=== PATIENT | female | born 2000 | race Caucasian/White ===

== ENCOUNTER 2021-11-28 22:02 | Inpatient (IN) ==
[2021-11-28] MEDS ORDERED: miSOPROStoL 200 MCG TABLET RECTAL PRN (22:24)
[2021-11-28] MEDS ORDERED: ONDANSETRON 4 MG/2 ML VIAL IV PRN (22:24)
[2021-11-28] MEDS ORDERED: CARBOPROST TROMETHAMINE 250 MCG/ML AMP IM PRN (22:24)
[2021-11-28] MEDS ORDERED: MEPERIDINE 50 MG/1 ML VIAL IV PRN (22:24)
[2021-11-28] MEDS ORDERED: METHYLERGONOVINE 0.2 MG/1 ML AMP IM PRN (22:24)
[2021-11-28] MEDS ORDERED: OXYTOCIN/LR 20 UNIT/1,000 ML BAG IV ONE (22:24)
[2021-11-28] MEDS ORDERED: TRANEXAMIC ACID 1,000 MG in SODIUM CHLORIDE 0.9% 100 ML IV PRN (22:24)
[2021-11-28] MEDS ORDERED: BUTORPHANOL 2 MG/ML VIAL IV PRN (22:24)
[2021-11-28 22:55] LABS: Basophils % 0.3 % (0.0-0.8); Eosinophils # 0.2 10*3/uL (0.0-0.87); Eosinophils % 1.6 % (0.00-10.9); Hematocrit 41.2 VOL% (35.7-47.0); Hemoglobin 13.6 GM/DL (12.0-16.0); Immature Granulocytes % 1.1 %; Immature Granulocytes Absolute 0.11 #; Lymphocytes # 1.8 10*3/uL (1.4-4.0); Lymphocytes % 18.6 % (21.3-54.2); Mean Platelet Volume 10.2 FL (9.6-12.0); Monocytes # 0.6 10*3/uL (0.11-0.8); Neutrophils % 72.4 % (38.7-73.9); Platelet Count 245 T/CUMM (130-400); Red Blood Count 4.68 MC/CUMM (3.8-5.5); Red Cell Distribution Width 14.7 % (9.3-17.3); White Blood Count 9.7 T/CUMM (4-12)
[2021-11-29] MEDS ORDERED: OXYTOCIN/LR 20 UNIT/1,000 ML BAG IV SCH (05:00)
[2021-11-29] MEDS: LACTATED RINGERS 1,000 ML IV SCH ×3 (05:12→12:12)
[2021-11-29] MEDS ORDERED: ONDANSETRON 4 MG/2 ML VIAL IV ONE (09:18)
[2021-11-29] MEDS ORDERED: diphenhydrAMINE 50 MG/1 ML VIAL IV PRN ×2 (09:18)
[2021-11-29] MEDS ORDERED: hydrOXYzine HCL 25 MG/1 ML VIAL IM PRN (09:18)
[2021-11-29] MEDS ORDERED: PROMETHAZINE 25 MG/1 ML VIAL IM ONE (09:18)
[2021-11-29] MEDS ORDERED: FAMOTIDINE 20 MG/2 ML VIAL IV ONE (09:18)
[2021-11-29] MEDS ORDERED: CITRIC ACID/SODIUM CITRATE 30 ML UDCUP PO ONE (09:18)
[2021-11-29] MEDS ORDERED: ePHEDrine 50 MG/ML VIAL IV PRN (09:18)
[2021-11-29] MEDS ORDERED: NALOXONE 0.4 MG/ML VIAL IV PRN (09:18)
[2021-11-29] MEDS: fentaNYL 2 MCG/ROPIV 0.2% EPID 100 ML EPIDURAL SCH ×2 (10:36→20:37)
[2021-11-29 12:23] LABS: Bilirubin,Urine Negative (Negative); Blood, Urine Negative (Negative); Glucose,Urine (UA) Negative (Negative); Ketones,Urine Negative (Negative); Nitrite,Urine Negative (Negative); Protein,Urine Negative (Negative); RBC,Urine 1 /HPF (0-4); Squamous Epithelial Cell,Urine Few /HPF (0-10); Urine Appearance Clear (Clear); Urine Color Yellow (Yellow); Urine Specific Gravity 1.015 (1.001-1.035); Urine Urobilinogen 0.2 eU/dL (<2.0)
[2021-11-29 12:24] LABS: Transitional Epi Cells,Urine Few /HPF (<1)
[2021-11-30] MEDS ORDERED: OXYTOCIN/LR 20 UNIT/1,000 ML BAG IV SCH (01:00)
[2021-11-30] MEDS: fentaNYL 2 MCG/ROPIV 0.2% EPID 100 ML EPIDURAL SCH (05:00)
[2021-11-30] MEDS: LACTATED RINGERS 1,000 ML IV SCH (06:10)
[2021-11-30] MEDS ORDERED: CARBOPROST TROMETHAMINE 250 MCG/ML AMP IM PRN (06:16)
[2021-11-30] MEDS ORDERED: METHYLERGONOVINE 0.2 MG/1 ML AMP IM PRN (06:16)
[2021-11-30] MEDS ORDERED: OXYTOCIN/LR 20 UNIT/1,000 ML BAG IV ONE ×2 (06:16→17:00)
[2021-11-30] MEDS ORDERED: miSOPROStoL 200 MCG TABLET RECTAL PRN (06:16)
[2021-11-30] MEDS ORDERED: TRANEXAMIC ACID 1,000 MG in SODIUM CHLORIDE 0.9% 100 ML IV PRN (06:16)
[2021-11-30 07:28] LABS: Basophils # 0.1 10*3/uL (0.0-0.2); Basophils % 0.4 % (0.0-0.8); Eosinophils # 0.1 10*3/uL (0.0-0.87); Eosinophils % 0.4 % (0.00-10.9); Hematocrit 38.7 VOL% (35.7-47.0); Hemoglobin 12.8 GM/DL (12.0-16.0); Immature Granulocytes % 0.6 %; Immature Granulocytes Absolute 0.08 #; Lymphocytes # 1.3 10*3/uL (1.4-4.0); Lymphocytes % 9.9 % (21.3-54.2); Mean Corpuscular HGB Conc 33.1 GM/DL (32-36); Mean Corpuscular Volume 88.8 FL (87-102); Mean Platelet Volume 10.4 FL (9.6-12.0); Monocytes # 0.8 10*3/uL (0.11-0.8); Monocytes % 5.8 % (1.7-12.7); Neutrophils % 82.9 % (38.7-73.9); Platelet Count 205 T/CUMM (130-400); Red Blood Count 4.36 MC/CUMM (3.8-5.5); Red Cell Distribution Width 15.1 % (9.3-17.3); White Blood Count 13.6 T/CUMM (4-12)
[2021-11-30] MEDS ORDERED: ceFAZolin 2,000 MG/50 ML DUPLEX IV ONE (08:00)
[2021-11-30] MEDS ORDERED: FAMOTIDINE 20 MG/2 ML VIAL IV ONE (08:00)
[2021-11-30] MEDS ORDERED: CITRIC ACID/SODIUM CITRATE 30 ML UDCUP PO ONE (08:00)
[2021-11-30] MEDS ORDERED: TRANEXAMIC ACID 1,000 MG/10 ML VIAL ONE (08:05)
[2021-11-30] MEDS ORDERED: miSOPROStoL 200 MCG TABLET ONE (08:05)
[2021-11-30] MEDS ORDERED: SODIUM CHLORIDE 0.9% 0 ML IV ONE (08:06)
[2021-11-30] MEDS ORDERED: METHYLERGONOVINE 0.2 MG/1 ML AMP ONE (08:06)
[2021-11-30] MEDS ORDERED: CARBOPROST TROMETHAMINE 250 MCG/ML AMP IM ONE (08:06)
[2021-11-30] MEDS ORDERED: OXYTOCIN/LR 0 UNIT/0 ML BAG IV ONE (08:06)
[2021-11-30] MEDS ORDERED: OXYTOCIN/LR 30 UNIT/1,000 ML BAG IV ONE (08:13)
[2021-11-30] MEDS ORDERED: OXYTOCIN 10 UNIT/ML VIAL IM ONE (08:13)
[2021-11-30] MEDS ORDERED: LIDOCAINE MPF 2% /EPI 20 ML VIAL ONE (08:47)
[2021-11-30] MEDS ORDERED: buprenorphine HCL 0.3 MG/ML VIAL ONE (09:17)
[2021-11-30] MEDS ORDERED: ONDANSETRON 4 MG/2 ML VIAL ONE (09:18)
[2021-11-30] MEDS ORDERED: DEXAMETHASONE 4 MG/1 ML VIAL ONE (09:18)
[2021-11-30] MEDS ORDERED: KETOROLAC 30 MG/1 ML VIAL ONE (09:21)
[2021-11-30] MEDS ORDERED: ACETAMINOPHEN INJ 1,000 MG/100 ML VIAL IV ONE (09:21)
[2021-11-30 09:28] LABS: Cord Arterial Blood HCO3 21.7 MMOL/L
[2021-11-30 09:31] LABS: Cord Venous Blood HCO3 22.5 MMOL/L; Cord Venous Blood PCO2 49.4 MMHG; Cord Venous Blood PO2 21.8
[2021-11-30] MEDS ORDERED: SIMETHICONE CHEW 80 MG TABLET PO PRN (13:40)
[2021-11-30] MEDS ORDERED: NEOMYCIN/POLYMYXIN/BACITRACIN OINT 0.9 GM PACK TOP SCH (15:00)
[2021-11-30] MEDS: ACETAMINOPHEN 500 MG TABLET PO SCH ×2 (15:27→21:54)
[2021-11-30] MEDS: METOCLOPRAMIDE 10 MG TABLET PO SCH ×2 (15:30→21:54)
[2021-11-30] MEDS: KETOROLAC 30 MG/1 ML VIAL IV SCH ×2 (15:45→21:54)
[2021-11-30 18:09] LABS: Basophils # 0.1 10*3/uL (0.0-0.2); Basophils % 0.3 % (0.0-0.8); Hematocrit 35.3 VOL% (35.7-47.0); Hemoglobin 11.8 GM/DL (12.0-16.0); Immature Granulocytes % 0.6 %; Immature Granulocytes Absolute 0.12 #; Lymphocytes # 1.1 10*3/uL (1.4-4.0); Lymphocytes % 5.8 % (21.3-54.2); Mean Corpuscular HGB Conc 33.4 GM/DL (32-36); Mean Corpuscular Volume 87.6 FL (87-102); Mean Platelet Volume 10.5 FL (9.6-12.0); Monocytes # 0.9 10*3/uL (0.11-0.8); Monocytes % 4.8 % (1.7-12.7); Neutrophils % 88.5 % (38.7-73.9); Platelet Count 200 T/CUMM (130-400); Red Blood Count 4.03 MC/CUMM (3.8-5.5); Red Cell Distribution Width 14.6 % (9.3-17.3); White Blood Count 18.5 T/CUMM (4-12)
[2021-12-01] MEDS: LACTATED RINGERS 1,000 ML IV SCH (00:44)
[2021-12-01] MEDS: KETOROLAC 30 MG/1 ML VIAL IV SCH (03:50)
[2021-12-01] MEDS: ACETAMINOPHEN 500 MG TABLET PO SCH (03:50)
[2021-12-01 04:55] LABS: Basophils % 0.3 % (0.0-0.8); Eosinophils # 0.1 10*3/uL (0.0-0.87); Eosinophils % 0.6 % (0.00-10.9); Hematocrit 33.2 VOL% (35.7-47.0); Hemoglobin 11.1 GM/DL (12.0-16.0); Immature Granulocytes % 0.9 %; Immature Granulocytes Absolute 0.13 #; Lymphocytes # 2.2 10*3/uL (1.4-4.0); Lymphocytes % 14.8 % (21.3-54.2); Mean Corpuscular HGB Conc 33.4 GM/DL (32-36); Mean Corpuscular Volume 88.3 FL (87-102); Mean Platelet Volume 10.4 FL (9.6-12.0); Monocytes % 6.6 % (1.7-12.7); Neutrophils % 76.8 % (38.7-73.9); Platelet Count 175 T/CUMM (130-400); Red Blood Count 3.76 MC/CUMM (3.8-5.5); Red Cell Distribution Width 14.6 % (9.3-17.3); White Blood Count 14.6 T/CUMM (4-12)
[2021-12-01] MEDS ORDERED: MAGNESIUM HYDROXIDE SUSP 30 ML UDCUP PO PRN (09:00)
[2021-12-01] MEDS ORDERED: IBUPROFEN 800 MG TABLET PO PRN (09:00)
[2021-12-01] MEDS: METOCLOPRAMIDE 10 MG TABLET PO SCH ×2 (09:14→18:47)
[2021-12-01] MEDS: DOCUSATE SODIUM 100 MG CAPSULE PO SCH (21:13)
[2021-12-02] MEDS: METOCLOPRAMIDE 10 MG TABLET PO SCH ×2 (03:40→09:14)
[2021-12-02 08:16] VITALS: BP 118/85
[2021-12-02] MEDS: DOCUSATE SODIUM 100 MG CAPSULE PO SCH (08:25)
[2021-12-02] MEDS ORDERED: DIPH/TET/ACEL PERT BOOSTER VACCINE 0.5 ML VIAL IM ONE (09:11)
== END 2021-12-02 13:20 | disposition home or self-care (01) | DRG 788 ==
LOC: N.LDOUT 22:02 → N.LD 22:08 → N.OB 11-30 12:52
PROVIDERS: ADMIT Obstetrics & Gynecology; ATTEND Obstetrics & Gynecology
PROC: LDCSECT (ICD-10-PCS; 2021-11-30 08:50)